=== PATIENT | male | born 1950 | race Caucasian/White ===

== ENCOUNTER → 2017-01-04 | Outpatient (CLI) | payer MEDICARE, BC ==
[2017-01-04 11:40] LABS: Anion Gap 10 mmol/L; Blood Urea Nitrogen 15 mg/dL (9-20); Calcium 9.1 mg/dL (8.4-10.2); Carbon Dioxide 24 mmol/L (22-30); Chloride 107 mmol/L (98-107); Glucose 99 mg/dL (74-99); Non-African American GFR(MDRD) >60 (>60 ml/min/1.73 sqM); Potassium 4.2 mmol/L (3.5-5.1); Sodium 141 mmol/L (137-145)
== END ==
LOC: LABWHC1 09:42
PROVIDERS: ATTEND Internal Medicine Cardiovascular Disease
DX: I71.2 Thoracic aortic aneurysm, without rupture (principal)
CPT/HCPCS: 36415; 80048

== ENCOUNTER → 2017-01-10 | Outpatient (CLI) | payer MEDICARE, BC ==
[2017-01-10 10:45] LABS: Anion Gap 7 mmol/L; Blood Urea Nitrogen 19 mg/dL (9-20); Calcium 9.2 mg/dL (8.4-10.2); Carbon Dioxide 27 mmol/L (22-30); Chloride 106 mmol/L (98-107); Glucose 97 mg/dL (74-99); Non-African American GFR(MDRD) >60 (>60 ml/min/1.73 sqM); Sodium 140 mmol/L (137-145)
--- NOTE | 2017-01-10 14:17 | CT ---
EXAMINATION TYPE: CT angio chest DATE OF EXAM: 01/10/2017 1:25 PM COMPARISON: 01/30/2015 HISTORY: 66-year-old male thoracic aortic aneurysm, follow-up. TECHNIQUE: Contiguous axial scanning of the chest performed without and with IV Contrast, patient inj ected with 100 mL of Omnipaque 350. Coronal/sagittal MIP reconstructions performed. 3-D reconstructio ns generated on a dedicated independent workstation. CT DLP: 607.1 mGycm Automated exposure control for dose reduction was used. FINDINGS: The heart is normal size without pericardial effusion. Coronary vessel calcifications are present and are a marker for coronary artery disease. Ascending aorta remains ectatic and 3.8 cm. There is conventional arterial vessel branching anatomy w ith very mild atherosclerotic arch calcifications. Upper descending thoracic aorta aneurysmal at 3.6 cm, stable. Lower descending thoracic aorta is ectatic at 2.7 cm, unchanged. Evaluation of the lungs shows a calcified granuloma at the left base. No consolidation or pleural eff usion. Tiny hiatal hernia. Redemonstrated couple cysts upper pole left kidney, largest measuring 4.9 cm, in creased from 4.1 cm, previously. Bones: Endplate spondylosis mid to lower thoracic spine. No osseous destructive process. IMPRESSION: STABLE ECTASIA ASCENDING AORTA (3.8 CM) AND ANEURYSM OF THE UPPER DESCENDING THORACIC AORTA (3.6 CM).
== END | disposition home or self-care (01) ==
LOC: RADCTMAIN 09:56
PROVIDERS: ATTEND Internal Medicine Cardiovascular Disease
DX: I71.2 Thoracic aortic aneurysm, without rupture (principal)
CPT/HCPCS: 80048; 71275; 36415; Q9967

== ENCOUNTER → 2017-11-24 | Outpatient (CLI) | payer MEDICARE, BC ==
[2017-11-24 13:06] LABS: Blood Urea Nitrogen 19 mg/dL (9-20)
--- NOTE | 2017-11-24 14:33 | CT ---
EXAMINATION TYPE: CT angio thoracic/abd aorta DATE OF EXAM: 11/24/2017 COMPARISON: 01/10/2017 HISTORY: f/u aortic aneurysm CT DLP: 567.5 mGycm. Automated Exposure Control for Dose Reduction was Utilized. CONTRAST: CT scan of the thorax, abdomen and pelvis is performed with IV Contrast, patient injected with 100 mL of Omnipaque 350. 3-D reformats were obtained of the vasculature at a separate workstation. FINDINGS: LUNGS: There is bibasilar subsegmental dependent atelectasis. The lungs are grossly clear, there is n o concerning parenchymal mass or nodule identified. There is no pleural effusion or pneumothorax se en. The tracheobronchial tree is patent. MEDIASTINUM: There is stable ectasia of the ascending thoracic aorta measuring 3.6 cm on series 10 im age 36 and redemonstration of aneurysmal dilatation of the upper descending thoracic aorta measuring 3.6 cm on series 4 image 18. Caliber is unchanged from the prior. There are no greater than 1 cm jose manuel r or mediastinal lymph nodes. No pericardial effusion is seen. Moderate coronary artery consolidat ions are seen within the left anterior descending coronary artery. LIVER/GB: Liver is unremarkable in enhancement. No evidence of cholelithiasis. PANCREAS: No pancreatic ductal dilatation. SPLEEN: No splenomegaly. ADRENALS: No nodularity or thickening. KIDNEYS:Left upper pole exophytic 4.5 cm renal cyst is seen in addition to a smaller adjacent slightl y hyperdense 2.4 cm renal lesion that is seen exophytically emanating anterior medially. This is not entirely compatible with a simple cyst and could represent a cyst with signal enhancement, neoplasm, or proteinaceous/hemorrhagic cyst. LYMPH NODES: No greater than 1cm abdominal or pelvic lymph nodes are appreciated. OSSEOUS STRUCTURES: There is a grade 2 anterolisthesis of L5 on S1 with bilateral pars interarticular is defects. Mild multilevel degenerative changes of the thoracolumbar spine are noted. VASCULATURE: The abdominal aorta is within normal limits of caliber measuring 2.3 cm proximally, 1.8 cm in its midportion and 1.8 cm distally. There is moderate calcific atheromatous changes of the abdo renata aorta and its branches. There is patency of the superior mesenteric artery, inferior mesenteric artery and celiac trunk. No evidence of focal aneurysm or dissection. No evidence of vascular occlus ion. Renal arteries are patent. IMPRESSION: 1. Stable ectasia of the ascending thoracic aorta and aneurysm of the upper descending thoracic aorta . No evidence for abdominal aortic aneurysm, occlusion, or focal stenosis. Moderate calcific atheroma tous changes are seen of the abdominal aorta and its branches as well as of the left anterior descend ing coronary artery. 2. Left renal lesion that is incompletely characterized adjacent to a simple renal cyst. Renal ultras ound is recommended for further evaluation. 3. Grade 2 anterolisthesis of L5 on S1 secondary to bilateral pars interarticularis defects.
== END | disposition home or self-care (01) ==
LOC: RADCTMAIN 12:26
PROVIDERS: ATTEND Internal Medicine
DX: I77.810 Thoracic aortic ectasia (principal); I71.2 Thoracic aortic aneurysm, without rupture; I70.0 Atherosclerosis of aorta; N28.1 Cyst of kidney, acquired; N28.89 Other specified disorders of kidney and ureter
CPT/HCPCS: 82565; 84520; 75635; 71275; 36415; Q9967

== ENCOUNTER → 2017-12-07 | Outpatient (CLI) | payer MEDICARE, BC ==
--- NOTE | 2017-12-07 15:30 | US ---
EXAMINATION TYPE: US kidneys/renal and bladder DATE OF EXAM: 12/07/2017 COMPARISON: US renal March 09, 2015, CT aorta November 24, 2017. CLINICAL HISTORY: N28.1 KIDNEY CYST. EXAM MEASUREMENTS: Right Kidney: 10.5 x 5.0 x 5.4 cm Left Kidney: 10.4 x 5.0 x 4.7 cm Previous bladder mass seen on US. Patient states he had the TURP procedure since his last ultrasound. Right Kidney: No hydronephrosis or masses seen Left Kidney: cyst measuring 4.2 x 4.8 x 4.6cm, adjacent cyst measuring 1.7 x 1.3 x 1.6cm Bladder: Bladder masslike structure not seen on today's ultrasound, wall somewhat irregular. No hydronephrosis is evident bilaterally. TURP defect inferiorly in the bladder is noted. Bladder is not greatly distended with lobulation but no suspicious focal mass. Slightly irregular wall thickenin g is suspicious for product of poor distention is no obvious mass is present on recent CT which inclu ded majority of bladder. Acute cystitis cannot be excluded in appropriate clinical setting. Correlate clinically. There is redemonstration of simple appearing cyst measuring 4.8 x 4.2 x 4.6 cm upper david e level left kidney. Smaller 1.7 cm cyst near this correlates with slightly hyperdense lesion on rece nt CT. IMPRESSION: Renal ultrasound confirms more simple appearing 1.8 cm cyst near dominant simple cyst left kidney. No worrisome renal mass noted.
== END | disposition home or self-care (01) ==
LOC: RADUSWWP 14:38
PROVIDERS: ATTEND Internal Medicine
DX: N28.1 Cyst of kidney, acquired (principal)
CPT/HCPCS: 76770

== ENCOUNTER → 2020-01-02 | Outpatient (CLI) | payer MEDICARE, BC ==
--- NOTE | 2020-01-02 10:47 | US ---
EXAMINATION TYPE: US scrotum with doppler. Grayscale and color Doppler Duplex imaging performed of t he scrotum. DATE OF EXAM: 01/02/2020 COMPARISON: NONE CLINICAL HISTORY: S76.219A groin strain. EXAM MEASUREMENTS: TESTICLES: Right Testicle: 4.5 x 2.2 x 3.3 cm Left Testicle: 4.5 x 2.5 x 2.5 cm EPIDIDYMIS HEAD: Right Epididymis: 0.9 cm Left Epididymis: 0.9 cm Doppler performed to assess for testicular vascularity; good bilateral color flow and waveforms are s een. Presence of hydroceles: no Presence of varicoceles: no Comparison color images shows symmetric blood flow to both testicles. IMPRESSION: Unremarkable scrotal ultrasound study.
--- NOTE | 2020-01-02 10:49 | US ---
EXAMINATION TYPE: US groin RT DATE OF EXAM: 01/02/2020 COMPARISON: CT aorta November 24, 2017 CLINICAL HISTORY: s76.219a groin strain. Patient and Dr. kaur right groin lump. Pictures taken under testicular ultrasound (see 36-43) At the level of the EIV there does appear to be a possible inguinal hernia. This doesn't change with valsalva. Images saved at end of scrotal ultrasound study. Technologist believes possible small fat-containing right inguinal hernia during real-time scanning not clearly seen on [address] CT. IMPRESSION: As above.
== END | disposition home or self-care (01) ==
LOC: RADUSWWP 09:00
PROVIDERS: ATTEND Family Medicine
DX: S76.219A Strain of adductor muscle, fascia and tendon of unspecified thigh, initial encounter (principal)
CPT/HCPCS: 76870; 93975

== ENCOUNTER → 2020-06-18 | Outpatient (CLI) | payer MEDICARE, BC ==
--- NOTE | 2020-06-18 11:06 | NM ---
EXAMINATION TYPE: [place] stress cardiolite complete DATE OF EXAM: 06/18/2020 COMPARISON: NONE HISTORY: History of hypertension and family history of heart attack along with prior tobacco use and hypercholesterolemia presents with chest pain, angina. TECHNIQUE: After the intravenous administration of 10.13 mCi Tc 99m Sestamibi - Rest images obtained 45 minutes post injection. The patient exercised using a RADHA protocol and 1 minute prior to peak exercise was injected with 26.6 mCi Tc 99m Sestamibi - Stress images obtained 10 minutes post inject ion. FINDINGS: Targeted heart rate was achieved during performance of the study. Review of stress and rest SPECT ede ges demonstrates no distinct perfusion abnormality. Gated analysis shows normal wall motion with an estimated left ventricular ejection fraction of 61 %. IMPRESSION: No scintigraphic evidence for reversible ischemia
--- NOTE | 2020-06-18 15:20 | EST ---
EXERCISE STRESS AGE: 69 SEX: M HT: 5'8" WT: 200 lbs. PROTOCOL: Cardiolite stress STAGE: 3 DURATION OF EXERCISE: 8:00 HEART RATE REST: 72 BLOOD PRESSURE REST: 144/80 MAXIMUM HEART RATE ACHIEVED: 141 MAXIMUM BLOOD PRESSURE: 223/58 85% MPHR: 128 100% MPHR: 150 METS: 8.9 INDICATIONS: Unstable angina CLINICAL INFORMATION: STRESS DATA: Heart rate 72, pressure is 144/80 mmHg. Baseline EKG showed sinus mechanism. The patient exercised on the treadmill according to Mark protocol for a total of 8 minutes and achieved 8.9 METS. The max heart rate was 141 which is about 94% of maximum predicted heart rate and maximum blood pressure was 223/58 mmHg. Clinically, the patient did not have any symptoms of chest pain or discomfort and the EKG did not show any significant ST or T-wave abnormalities concerning for ischemia. CONCLUSION: 1. Excellent exercise tolerance. 2. Normal EKG in response to exercise. 3. Exaggerated blood pressure in response to exercise. MMODL / IJN: [id number] /
== END | disposition home or self-care (01) ==
LOC: RADNMMAIN 08:20
PROVIDERS: ATTEND Family Medicine
DX: I20.0 Unstable angina (principal)
CPT/HCPCS: 93017; 78452; A9500

== ENCOUNTER → 2020-07-10 | Outpatient (CLI) | payer MEDICARE, BC ==
--- NOTE | 2020-07-10 15:39 | CT ---
EXAMINATION TYPE: CT angio chest DATE OF EXAM: 07/10/2020 10:39 AM COMPARISON: CTA chest 11/24/2017 HISTORY: Thoracic aortic aneurysm without rupture CT DLP: 793 mGycm Automated exposure control for dose reduction was used. CONTRAST: CTA scan of the thorax is performed without and with IV Contrast, patient injected with 100 ml mL of Isovue 370, thoracic aortic aneurysm protocol. 3D reconstructed images and MIP images are created on an independent workstation and reviewed.. FINDINGS: LUNGS: The lungs are grossly clear, there is no concerning parenchymal mass or nodule identified. T here is no pleural effusion or pneumothorax seen. The tracheobronchial tree is patent. MEDIASTINUM: Precontrast imaging demonstrates no evidence of intrarenal hematoma. There is satisfacto ry enhancement of the thoracic aorta and its branches, there is no CT evidence for dissection. There is redemonstrated ascending thoracic aortic ectasia measuring up to 3.8 cm, without kimberlyn aneurysmal dilatation. Descending thoracic aorta measures up to 2.9 cm, within normal limits. There are no grea ter than 1 cm hilar or mediastinal lymph nodes. No pericardial effusion is seen. Cardiac size zaynab l. Calcified coronary artery disease. OTHER: Degenerative changes of the spine. Bilateral renal cysts. IMPRESSION: UNCHANGED 3.8 CM ECTASIA OF THE THORACIC ASCENDING AORTA.
== END | disposition home or self-care (01) ==
LOC: RADCTMAIN 08:26
PROVIDERS: ATTEND Surgery
DX: I77.810 Thoracic aortic ectasia (principal)
CPT/HCPCS: 82565; 84520; 71275; 36415; Q9967

== ENCOUNTER → 2020-07-20 | Outpatient (CLI) | payer MEDICARE, BC | END | disposition home or self-care (01) | LOC: LABWHC1 14:56 | PROVIDERS: ATTEND Family Medicine | DX: Z20.828 Contact with and (suspected) exposure to other viral communicable diseases (principal) | CPT/HCPCS: U0003; C9803 ==